=== PATIENT | female | born 1945 | race Caucasian/White ===

== ENCOUNTER 2019-01-25 15:13 | Inpatient (IN) ==
[2019-01-25] MEDS ORDERED: *HR* FentaNYL (PF) 100 MCG/2 ML VIAL IVP ONE (16:29)
[2019-01-25] MEDS ORDERED: Isovue-370 500 ML BOTTLE IVP ONE (16:29)
[2019-01-25] MEDS ORDERED: Vancomycin 1,750 MG in 0.9 % Sodium Chloride 250 ML IVPB ONE (16:34)
[2019-01-25] MEDS ORDERED: Piperacillin/Tazobactam 4.5 GM in Water for inj. (sterile) 20 ML IVP ONE (16:34)
[2019-01-25] MEDS ORDERED: Piperacillin/Tazobactam 3.375 GM in 0.9 % Sodium Chloride Mini Bag 100 ML IVPB ONE (16:46)
[2019-01-25 17:22] LABS: Basophils % 0.2 %; Eosinophils # 0.1 K/mcL (0.0-0.6); Eosinophils % 1.1 %; Hematocrit 33.9 % (35.3-44.9); Hemoglobin 10.1 g/dL (11.5-15.4); Immature Granulocytes % 0.4 % (0-4); Lymphocytes # 1.1 K/mcL (0.6-4.6); Lymphocytes % 9.1 %; Mean Corpuscular HGB Conc 29.8 g/dL (31.6-35.5); Mean Corpuscular Volume 87.1 fL (83.0-100.0); Mean Platelet Volume 10.4 fL (9.4-12.4); Monocytes # 0.8 K/mcL (0.0-1.3); Monocytes % 6.2 %; Neutrophils # 10.1 K/mcL (1.6-8.9); Platelet Count 337 K/mcL (140-400); Red Blood Count 3.89 M/mcL (3.82-4.97); White Blood Count 12.1 K/mcL (4.3-11.1)
[2019-01-25 17:40] LABS: Alanine Aminotransferase 16 Units/L (7-52); Albumin 4.1 g/dL (3.5-5.7); Albumin/Globulin Ratio 1.2 (1.1-2.2); Alkaline Phosphatase 79 Units/L (34-104); Aspartate Amino Transferase 20 Units/L (13-39); BUN/Creatinine Ratio 14 (6-26); Bilirubin,Total 0.5 mg/dL (0.3-1.0); Blood Urea Nitrogen 14 mg/dL (8-23); Carbon Dioxide 25 mEq/L (23-29); Chloride 104 mEq/L (98-107); Globulin 3.3 g/dL (2.4-3.5); Glucose 107 mg/dL (70-105); Osmolality,Calculated 287 (280-300); Potassium 3.8 mEq/L (3.5-5.1); Sodium 138 mEq/L (136-145); Total Protein 7.4 g/dL (6.4-8.9); eGFR For African Americans > 60 (> 60); eGFR For Non-African Americans 53 (> 60)
[2019-01-25] MEDS ORDERED: Ketorolac 30 MG/ML VIAL IVP ONE (21:11)
[2019-01-25] MEDS ORDERED: Acetaminophen 325 MG TABLET PO PRN (21:12)
[2019-01-25] MEDS ORDERED: *HR* OxyCODONE Immed Rel 5 MG TABLET PO PRN (21:12)
[2019-01-25] MEDS ORDERED: Ketorolac 30 MG/ML VIAL IVP PRN (21:12)
[2019-01-25] MEDS: Ringers Solution, Lactated 1,000 ML IVC SCH (22:16)
[2019-01-26 02:30] LABS: Basophils % 0.3 %; Eosinophils # 0.1 K/mcL (0.0-0.6); Eosinophils % 0.9 %; Hematocrit 29.6 % (35.3-44.9); Immature Granulocytes % 0.3 % (0-4); Lymphocytes # 1.8 K/mcL (0.6-4.6); Lymphocytes % 15.7 %; Mean Corpuscular HGB Conc 30.4 g/dL (31.6-35.5); Mean Corpuscular Hemoglobin 26.4 pg (28.0-33.3); Mean Corpuscular Volume 86.8 fL (83.0-100.0); Mean Platelet Volume 10.5 fL (9.4-12.4); Monocytes # 0.9 K/mcL (0.0-1.3); Monocytes % 8.1 %; Neutrophils # 8.3 K/mcL (1.6-8.9); Platelet Count 291 K/mcL (140-400); Red Blood Count 3.41 M/mcL (3.82-4.97); Segmented Neutrophils % 74.7 %; White Blood Count 11.1 K/mcL (4.3-11.1)
[2019-01-26 02:49] LABS: BUN/Creatinine Ratio 12 (6-26); Blood Urea Nitrogen 13 mg/dL (8-23); Calcium 8.5 mg/dL (8.6-10.3); Carbon Dioxide 24 mEq/L (23-29); Chloride 106 mEq/L (98-107); Glucose 111 mg/dL (70-105); Osmolality,Calculated 285 (280-300); Potassium 3.7 mEq/L (3.5-5.1); Sodium 137 mEq/L (136-145); eGFR For African Americans > 60 (> 60); eGFR For Non-African Americans 50 (> 60)
[2019-01-26] MEDS: Ringers Solution, Lactated 1,000 ML IVC SCH (04:16)
[2019-01-26] MEDS: Cefepime HCl 2,000 MG in 0.9 % Sodium Chloride Mini Bag 100 ML IVPB SCH ×2 (05:19→17:44)
[2019-01-26] MEDS: *HR* Heparin 5,000 UNIT/ML VIAL SQ SCH ×2 (06:34→17:24)
[2019-01-26] MEDS ORDERED: Lisinopril 20 MG TABLET PO SCH (09:00)
[2019-01-26] MEDS ORDERED: Fenofibrate 54 MG TABLET PO SCH (09:00)
[2019-01-26] MEDS ORDERED: *HR* Propofol 200 MG/20 ML VIAL IVP ONE (18:10)
[2019-01-26] MEDS ORDERED: Dexamethasone 4 MG/ML VIAL ONE ×2 (18:10)
[2019-01-26] MEDS ORDERED: *HR* FentaNYL (PF) 100 MCG/2 ML VIAL ONE (18:10)
[2019-01-26] MEDS ORDERED: Ondansetron 4 MG/2 ML VIAL ONE (18:10)
[2019-01-26] MEDS ORDERED: Lidocaine -MPF 2% 2 ML VIAL ONE (18:10)
[2019-01-26] MEDS ORDERED: Lidocaine/EPI 1:200k 1% PF 10 ML VIAL ONE (18:12)
[2019-01-26] MEDS ORDERED: Bupivacaine/EPI 1:200k 0.5%PF 10 ML VIAL ONE (18:12)
[2019-01-26] MEDS ORDERED: Lidocaine/EPI 1:100k 1% 20 ML VIAL ONE (18:13)
[2019-01-26] MEDS ORDERED: Ondansetron 4 MG/2 ML VIAL IVP ONE (18:15)
[2019-01-26] MEDS: *HR* HYDROmorphone (PF) 1 MG/ML SYRINGE IVP PRN ×3 (19:06→19:20)
[2019-01-26] MEDS ORDERED: *HR* Promethazine 25 MG/ML VIAL IVP ONE (20:38)
[2019-01-27] MEDS ORDERED: *HR* OxyCODONE Immed Rel 5 MG TABLET PO PRN (02:43)
[2019-01-27] MEDS ORDERED: Ondansetron 4 MG/2 ML VIAL IVP ONE (02:43)
[2019-01-27] MEDS ORDERED: Ketorolac 15 MG/ML VIAL IVP PRN (02:43)
[2019-01-27] MEDS ORDERED: *HR* HYDROmorphone (PF) 1 MG/ML SYRINGE IVP PRN (02:43)
[2019-01-27] MEDS ORDERED: *HR* Promethazine 25 MG/ML VIAL IVP PRN (03:29)
[2019-01-27] MEDS: Cefepime HCl 2,000 MG in Water for inj. (sterile) 20 ML IVP SCH ×2 (06:08→18:10)
[2019-01-27] MEDS: *HR* Heparin 5,000 UNIT/ML VIAL SQ SCH ×2 (06:09→18:11)
[2019-01-27] MEDS: Acetaminophen 325 MG TABLET PO PRN ×3 (06:44→23:48)
[2019-01-27] MEDS: Lisinopril 20 MG TABLET PO SCH (08:08)
[2019-01-27] MEDS: Fenofibrate 54 MG TABLET PO SCH (08:08)
[2019-01-27 09:17] LABS: Basophils % 0.2 %; Eosinophils % 0.2 %; Hematocrit 29.6 % (35.3-44.9); Hemoglobin 9.2 g/dL (11.5-15.4); Immature Granulocytes % 0.4 % (0-4); Lymphocytes # 0.8 K/mcL (0.6-4.6); Lymphocytes % 6.6 %; Mean Corpuscular HGB Conc 31.1 g/dL (31.6-35.5); Mean Corpuscular Hemoglobin 26.4 pg (28.0-33.3); Mean Corpuscular Volume 84.8 fL (83.0-100.0); Mean Platelet Volume 10.2 fL (9.4-12.4); Monocytes # 0.6 K/mcL (0.0-1.3); Monocytes % 4.9 %; Neutrophils # 10.5 K/mcL (1.6-8.9); Platelet Count 332 K/mcL (140-400); Red Blood Count 3.49 M/mcL (3.82-4.97); Red Cell Distribution Width 14.3 % (11.5-14.5); Segmented Neutrophils % 87.7 %
[2019-01-27 09:34] LABS: BUN/Creatinine Ratio 14 (6-26); Blood Urea Nitrogen 14 mg/dL (8-23); Calcium 8.4 mg/dL (8.6-10.3); Carbon Dioxide 24 mEq/L (23-29); Chloride 108 mEq/L (98-107); Glucose 116 mg/dL (70-105); Osmolality,Calculated 291 (280-300); Potassium 3.9 mEq/L (3.5-5.1); Sodium 140 mEq/L (136-145); eGFR For African Americans > 60 (> 60); eGFR For Non-African Americans 53 (> 60)
[2019-01-27] MEDS ORDERED: Td (TENIVAC) Vaccine 0.5 ML VIAL IM ONE (11:40)
[2019-01-28] MEDS: Cefepime HCl 2,000 MG in Water for inj. (sterile) 20 ML IVP SCH (05:53)
[2019-01-28] MEDS: *HR* Heparin 5,000 UNIT/ML VIAL SQ SCH (05:54)
[2019-01-28 06:30] LABS: Basophils % 0.4 %; Eosinophils # 0.3 K/mcL (0.0-0.6); Eosinophils % 3.6 %; Hematocrit 28.8 % (35.3-44.9); Immature Granulocytes % 0.1 % (0-4); Lymphocytes # 1.4 K/mcL (0.6-4.6); Lymphocytes % 17.2 %; Mean Corpuscular HGB Conc 31.3 g/dL (31.6-35.5); Mean Corpuscular Hemoglobin 26.6 pg (28.0-33.3); Mean Corpuscular Volume 85.2 fL (83.0-100.0); Mean Platelet Volume 10.5 fL (9.4-12.4); Monocytes # 0.5 K/mcL (0.0-1.3); Monocytes % 6.4 %; Neutrophils # 5.7 K/mcL (1.6-8.9); Platelet Count 313 K/mcL (140-400); Red Blood Count 3.38 M/mcL (3.82-4.97); Red Cell Distribution Width 14.1 % (11.5-14.5); Segmented Neutrophils % 72.3 %; White Blood Count 7.9 K/mcL (4.3-11.1)
[2019-01-28 07:11] VITALS: BP 117/63
[2019-01-28] MEDS: Lisinopril 20 MG TABLET PO SCH (08:48)
[2019-01-28] MEDS: Fenofibrate 54 MG TABLET PO SCH (08:48)
[2019-01-28] MEDS: Acetaminophen 325 MG TABLET PO PRN (09:08)
[2019-01-28] MEDS ORDERED: Aminoglycoside Consult 1 EACH MC ONE (11:58)
== END 2019-01-28 11:59 | disposition home or self-care (01) | DRG 580 ==
LOC: 3ANU 15:13 → EMEROOARM 15:13 → SUATTDRO 18:59 → 3ANU 20:05
PROVIDERS: ADMIT Student in an Organized Health Care Education/Training Program; ATTEND Internal Medicine

== ENCOUNTER 2019-04-05 12:54 | Inpatient (IN) ==
[2019-04-05] MEDS ORDERED: Pantoprazole 40 MG VIAL IVP ONE (13:16)
[2019-04-05 13:57] LABS: INR 1.1; Prothrombin Time 12.9 Seconds (9.4-12.1)
[2019-04-05 14:03] LABS: Basophils % 0.4 %; Eosinophils # 0.1 K/mcL (0.0-0.6); Eosinophils % 2.2 %; Hematocrit 35.4 % (35.3-44.9); Hemoglobin 10.6 g/dL (11.5-15.4); Lymphocytes # 1.2 K/mcL (0.6-4.6); Mean Corpuscular HGB Conc 29.9 g/dL (31.6-35.5); Mean Corpuscular Hemoglobin 25.1 pg (28.0-33.3); Mean Corpuscular Volume 83.9 fL (83.0-100.0); Mean Platelet Volume 10.1 fL (9.4-12.4); Monocytes # 0.5 K/mcL (0.0-1.3); Monocytes % 10.3 %; Neutrophils # 2.8 K/mcL (1.6-8.9); Platelet Count 385 K/mcL (140-400); Red Blood Count 4.22 M/mcL (3.82-4.97); Red Cell Distribution Width 15.4 % (11.5-14.5); Segmented Neutrophils % 61.1 %; White Blood Count 4.7 K/mcL (4.3-11.1)
[2019-04-05 14:20] LABS: BUN/Creatinine Ratio 24 (6-26); Blood Urea Nitrogen 25 mg/dL (8-23); Calcium 8.8 mg/dL (8.6-10.3); Carbon Dioxide 22 mEq/L (23-29); Chloride 107 mEq/L (98-107); Glucose 89 mg/dL (70-105); Osmolality,Calculated 294 (280-300); Potassium 3.1 mEq/L (3.5-5.1); Sodium 140 mEq/L (136-145); eGFR For African Americans > 60 (> 60); eGFR For Non-African Americans 51 (> 60)
[2019-04-05] MEDS ORDERED: Ondansetron 4 MG/2 ML VIAL IVP PRN (16:30)
[2019-04-05] MEDS ORDERED: Ondansetron ODT 4 MG TAB.RAPDIS SL PRN (16:30)
[2019-04-05] MEDS: Pantoprazole 40 MG VIAL IVP SCH (18:52)
[2019-04-06 04:58] LABS: Basophils % 0.6 %; Eosinophils # 0.2 K/mcL (0.0-0.6); Eosinophils % 3.6 %; Hematocrit 33.4 % (35.3-44.9); Hemoglobin 10.6 g/dL (11.5-15.4); Immature Granulocytes % 0.4 % (0-4); Lymphocytes # 1.5 K/mcL (0.6-4.6); Lymphocytes % 28.8 %; Mean Corpuscular HGB Conc 31.7 g/dL (31.6-35.5); Mean Corpuscular Hemoglobin 25.5 pg (28.0-33.3); Mean Corpuscular Volume 80.5 fL (83.0-100.0); Monocytes # 0.4 K/mcL (0.0-1.3); Monocytes % 8.1 %; Neutrophils # 3.1 K/mcL (1.6-8.9); Platelet Count 385 K/mcL (140-400); Red Blood Count 4.15 M/mcL (3.82-4.97); Red Cell Distribution Width 15.5 % (11.5-14.5); Segmented Neutrophils % 58.5 %; White Blood Count 5.3 K/mcL (4.3-11.1)
[2019-04-06 05:35] LABS: BUN/Creatinine Ratio 22 (6-26); Blood Urea Nitrogen 24 mg/dL (8-23); Calcium 8.8 mg/dL (8.6-10.3); Carbon Dioxide 25 mEq/L (23-29); Chloride 107 mEq/L (98-107); Glucose 95 mg/dL (70-105); Osmolality,Calculated 294 (280-300); Potassium 3.5 mEq/L (3.5-5.1); Sodium 140 mEq/L (136-145); eGFR For African Americans > 60 (> 60); eGFR For Non-African Americans 50 (> 60)
[2019-04-06] MEDS: Pantoprazole 40 MG VIAL IVP SCH ×2 (05:51→18:52)
[2019-04-06] MEDS ORDERED: 0.9 % Sodium Chloride 1,000 ML IVC SCH (14:00)
[2019-04-06] MEDS ORDERED: *HR* Propofol 200 MG/20 ML VIAL IVP ONE (14:35)
[2019-04-06] MEDS ORDERED: Lidocaine -MPF 2% 2 ML VIAL ONE (14:36)
[2019-04-06 16:04] LABS: Hematocrit 35.3 % (35.3-44.9); Hemoglobin 10.9 g/dL (11.5-15.4)
[2019-04-06 16:23] LABS: % Iron Saturation 5 % (15-50); Iron 26 mcg/dL (50-170); Transferrin 380 mg/dL (203-362)
[2019-04-06 16:36] LABS: Ferritin 10 ng/mL (10-120)
[2019-04-06 16:42] LABS: Folate 21.4 ng/mL (3.0-16.0)
[2019-04-06] MEDS ORDERED: SODIUM CHLORIDE/NAHCO3/KCL/PEG 4,000 ML SOLN.RECON PO ONE (17:00)
[2019-04-06] MEDS ORDERED: Iron Sucrose Complex 400 MG in 0.9 % Sodium Chloride 250 ML IVPB SCH (17:48)
[2019-04-07 05:30] LABS: Hematocrit 33.1 % (35.3-44.9); Hemoglobin 10.1 g/dL (11.5-15.4); Mean Corpuscular HGB Conc 30.5 g/dL (31.6-35.5); Mean Corpuscular Hemoglobin 24.6 pg (28.0-33.3); Mean Corpuscular Volume 80.5 fL (83.0-100.0); Mean Platelet Volume 10.1 fL (9.4-12.4); Platelet Count 379 K/mcL (140-400); Red Blood Count 4.11 M/mcL (3.82-4.97); Red Cell Distribution Width 15.2 % (11.5-14.5); White Blood Count 7.5 K/mcL (4.3-11.1)
[2019-04-07 05:49] LABS: BUN/Creatinine Ratio 18 (6-26); Blood Urea Nitrogen 18 mg/dL (8-23); Calcium 8.7 mg/dL (8.6-10.3); Carbon Dioxide 24 mEq/L (23-29); Chloride 106 mEq/L (98-107); Glucose 96 mg/dL (70-105); Osmolality,Calculated 284 (280-300); Potassium 3.6 mEq/L (3.5-5.1); Sodium 136 mEq/L (136-145); eGFR For African Americans > 60 (> 60); eGFR For Non-African Americans 56 (> 60)
[2019-04-07] MEDS: Pantoprazole 40 MG VIAL IVP SCH (06:50)
[2019-04-07] MEDS ORDERED: *HR* PHENYLEPHRINE 1,000 MCG/10 ML SYRINGE IVP ONE (08:19)
[2019-04-07] MEDS ORDERED: Propofol 500 MG/50 ML INFUS..BTL ONE (08:24)
[2019-04-07] MEDS ORDERED: Lidocaine -MPF 2% 2 ML VIAL ONE (08:24)
[2019-04-07] MEDS ORDERED: Iron Sucrose Complex 400 MG in 0.9 % Sodium Chloride 250 ML IVPB ONE (08:35)
[2019-04-07 10:28] VITALS: BP 131/64
== END 2019-04-07 13:34 | disposition home or self-care (01) | DRG 378 ==
LOC: EMEROOARM 12:54 → 2ANU 12:54
PROVIDERS: ADMIT Student in an Organized Health Care Education/Training Program; ATTEND Student in an Organized Health Care Education/Training Program
PROC: ENDOCBX (2019-04-07 08:00)